=== PATIENT | male | born 1950 | race Caucasian/White ===

== ENCOUNTER 2016-05-07 15:01 | Inpatient (IN) | payer OTHER, MEDICAID ==
[~2016-05-07] VITALS: Ht 172.7 cm; Wt 88.6 kg
[2016-05-07] MEDS ORDERED: SOD CHLORIDE 0.9% 1,000 ML IV STA (19:57)
[2016-05-07 20:44] LABS: ADD UMIC YES; URINE BILIRUBIN (Dip) 2+ (NEGATIVE); URINE BLOOD (Dip) NEGATIVE (NEGATIVE); URINE COLOR AMBER (YELLOW); URINE GLUCOSE (Dip) NEGATIVE (NEGATIVE); URINE KETONES (Dip) 15 (NEGATIVE); URINE LEUKOCYTE ESTERASE (Dip) NEGATIVE (NEGATIVE); URINE TOTAL PROTEIN (Dip) 1+ (NEGATIVE); URINE UROBILINOGEN (Dip) >8.0 E.U./dL (0.1-1.0)
[2016-05-07 20:44] LABS: BASOPHILS % 0.6 % (0.0-2.0); EOSINOPHILS # 0.1 10^3/ul (0.0-0.5); EOSINOPHILS % 0.8 % (0.0-7.0); HEMATOCRIT 40.3 % (42.0-52.0); HEMOGLOBIN 13.9 g/dl (14.0-18.0); LYMPHOCYTES # 1.1 10^3/ul (0.8-2.9); LYMPHOCYTES % 14.8 % (15.0-51.0); MEAN CORPUSCULAR HEMOGLOBIN 34.8 pg (29.0-33.0); MEAN CORPUSCULAR HGB CONC 34.4 g/dl (32.0-37.0); MEAN CORPUSCULAR VOLUME 101.2 fl (82.0-101.0); MEAN PLATELET VOLUME 7.4 fl (7.4-10.4); MONOCYTE # 0.8 10^3/ul (0.3-0.9); MONOCYTES % 10.2 % (0.0-11.0); NEUTROPHIL # 5.5 10^3/ul (1.6-7.5); NEUTROPHILS % 73.6 % (39.0-77.0); PLATELET COUNT 194 10^3/UL (140-440); RED BLOOD COUNT 3.98 10^6/ul (4.70-6.10); RED CELL DISTRIBUTION WIDTH 15.2 % (11.5-14.5); UNCORRECTED WBC 7.5 10^3/ul (4.8-10.8); WHITE BLOOD COUNT 7.5 10^3/ul (4.8-10.8)
[2016-05-07] MEDS ORDERED: VERA240C2 PO (20:45)
[2016-05-07 20:49] LABS: INR 1.08; PT RATIO 1.1
[2016-05-07 20:52] LABS: ALBUMIN 3.9 g/dl (3.3-4.9); CHLORIDE 95 mmol/L (97-110)
[2016-05-07 20:53] LABS: POTASSIUM 3.6 mmol/L (3.5-5.1); SODIUM 134 mmol/L (135-144)
[2016-05-07 20:54] LABS: URINE NITRITE (Dip) NEGATIVE (NEGATIVE)
[2016-05-07 20:55] LABS: ALKALINE PHOSPHATASE 97 IU/L (42-121); ANION GAP 19 (8-16); ASPARTATE AMINO TRANSFERASE 42 IU/L (15-46); BLOOD UREA NITROGEN 12 mg/dl (7-20); CARBON DIOXIDE 24 mmol/L (21-31); CREATININE 0.54 mg/dl (0.61-1.24); TOTAL PROTEIN 8.1 g/dl (6.1-8.1)
[2016-05-07 20:56] LABS: ALANINE AMINOTRANSFERASE 26 IU/L (13-69); CALCIUM 9.3 mg/dl (8.4-10.2); GLUCOSE 107 mg/dl (70-220)
[2016-05-07 20:56] LABS: ICTOTEST NEGATIVE (NEGATIVE)
[2016-05-07 20:57] LABS: URINE RBCS NONE SEEN /HPF (0)
[2016-05-07 20:58] LABS: MUCUS,URINE FEW
[2016-05-07 21:01] LABS: ALBUMIN/GLOBULIN RATIO 0.92
[2016-05-07 21:03] LABS: CONDITION 1; LH ANALYZER COMMENTS 1
[2016-05-07 21:09] LABS: TROPONIN-I < 0.012 ng/ml (0.00-0.12)
--- NOTE | 2016-05-07 21:13 | RADRPT ---
PROCEDURE: US aorta. CLINICAL INDICATION: Screening for aortic aneurysm TECHNIQUE: Multiple sonographic images of the aorta and iliac vessels was obtained utilizing will indigo, color-flow, compressive sonography and doppler imaging. The images were reviewed on a PACS wo [facility]. COMPARISON: None. FINDINGS: The aorta is normal in caliber with no evidence of abdominal aortic aneurysm. There is normal Doppler flow in the aorta and iliac vessels. The proximal aorta measures 1.9 x 2.1 x 1.7 cm. The mid aorta measures 1.9 x 1.6 x 1.6 cm. The distal aorta measures 1.9 x 2.0 x 1.9 cm. The right iliac artery measures 1.2 x 1.4 cm. The left iliac artery measures 1.4 x 1.4 cm. RPTAT: AA IMPRESSION: No evidence of abdominal aortic aneurysm. .Homero Woods MD, Date Time Electronically viewed and signed by .Homero Woods MD, MD on 05/07/2016 21:13 .S/
[2016-05-07 21:30] VITALS: TEMP 99
--- NOTE | 2016-05-07 22:14 | RADRPT ---
PROCEDURE: XR Chest. CLINICAL INDICATION: weakness TECHNIQUE: Single frontal view of the chest was obtained. COMPARISON: None. FINDINGS: The cardiomediastinal silhouette is normal size. Pulmonary vasculature is within normal limits. Th e lungs are clear. No signs of pleural fluid or pneumothorax are seen. The osseous structures and soft tissues are unre markable. IMPRESSION: No evidence for active cardiopulmonary disease. RPTAT: HBST .Keron Barksdale MD, MD Date Time Electronically viewed and signed by .Keron Barksdale MD, MD on 05/07/2016 22:14 .T/
--- NOTE | 2016-05-07 22:14 | RADRPT ---
PROCEDURE: CT Cervical Spine without contrast. CLINICAL INDICATION: Trauma TECHNIQUE: Noncontrast CT of the cervical spine was performed with axial images. Coronal and sagitta l images were also performed. The administered radiation dose was CTDI vol = 21.1 mGy, DLP = 426 mG y-cm. COMPARISON: There are no similar studies submitted for comparison. FINDINGS: Multilevel cervical spondylotic changes are present. There is grade 1 anterolisthesis of C4 on C5 a nd C5 on C6 due to facet arthritic changes. Vertebral body stature and alignment are maintained. No acute fracture or subluxation is identified. The paravertebral and paraspinous soft tissues are un remarkable. IMPRESSION: No acute fracture or subluxation. RPTAT: HIKT .Soren Mccord MD, Date Time Electronically viewed and signed by .Soren Mccord MD, on 05/07/2016 22:14 .T/
--- NOTE | 2016-05-07 22:16 | RADRPT ---
PROCEDURE: Noncontrast CT Head. CLINICAL INDICATION: Pain. TECHNIQUE: Noncontrast CT of the head was obtained. The administered radiation dose was CTDI vol = 43 mGy, DLP = 720 mGy-cm. COMPARISON: No pertinent prior examinations were submitted for comparison. FINDINGS: The ventricles and cortical sulci are mild to moderately enlarged. There is mild to moderate decrea sed attenuation within the periventricular and subcortical white matter compatible with chronic micr ovascular changes. There is no acute intracranial hemorrhage or extra-axial fluid collection. There is no mass effect . No midline shift is identified. There is no loss of trujillo-white differentiation to suggest acute in farction. The orbits are within normal limits. The paranasal sinuses are well aerated. No destructive osseous lesion is identified. IMPRESSION: No acute findings. Mild to moderate diffuse parenchymal volume loss and chronic microvascular roberts es. RPTAT: HIKT .Soren Mccord MD, MD Date Time Electronically viewed and signed by .Soren Mccord MD, on 05/07/2016 22:15 .T/
--- NOTE | 2016-05-07 22:38 | ERA ---
ER Documentation Chief Complaint Date/Time DATE: 05/07/16 TIME: 22:27 Chief Complaint BILATERAL LOWER EXTREMITY PAIN,DIFFICULTY WALKING HPI 65-year-old man with about 4 days of bilateral lower extremity paresis. He states he has had about 2 months of lower extremity weakness and normally uses a walker to get around the house. He was seen and evaluated at [facility] about 2 months ago for similar symptoms, although at that time he was able to walk without assistance. A cursory workup in the emergency department was unremarkable, bilateral lower extremity Doppler ultrasound was also negative for DVT at that time. Patient states 4 days ago he began to have gradual onset lower extremity paresis and has been unable to get up off of the floor, which is new for him. Patient also complains of intermittent spasms of the lower extremities and paresthesias to the hands bilaterally. He is also had some of these symptoms over the last 2 months although they have been increasing. He denies recent weight loss, no abdominal pain or chest pain, no back pain, no trauma, no headache or blurry vision, no complaints of neck pain, no history of fevers or chills, no night sweats. Patient denies recent URI symptoms or viral illness. ROS All systems reviewed and are negative except as per history of present illness. Medications Home Meds Reported Medications Verapamil Hcl* (Verapamil ER*) 240 Mg Cap24h.pel, 240 MG PO DAILY, CAP 05/07/16 Allergies Allergies: Coded Allergies: No Known Allergy (Unverified , 05/07/16) PMhx/Soc Arthritis, hypertension, recent lower extremity ultrasound which ruled out DVT History of Surgery: Yes Anesthesia Reaction: No Hx Neurological Disorder: No Hx Respiratory Disorders: No Hx Cardiac Disorders: Yes (HTN) Hx Psychiatric Problems: No Hx Miscellaneous Medical Probl: Yes (ARTHRITIS) Hx Alcohol Use: Yes Hx Substance Use: No Hx Tobacco Use: Yes Smoking Status: Never smoker FmHx Family History: No diabetes Physical Exam Vitals Vital Signs Date Time Temp Pulse Resp B/P Pulse Ox O2 Delivery O2 Flow Rate FiO2 05/07/16 21:30 99.0 84 18 170/91 100 Room Air 05/07/16 16:04 100.2 97 18 143/79 98 Physical Exam GENERAL: Well-developed, well-nourished, well-hydrated, in no apparent distress , looks nontoxic in appearance HEENT: Moist mucous membranes, pink conjunctiva, no cervical spine tenderness or step-off deformities, no goiter, no jaundice or icterus, extraocular movements intact without pain. No submandibular induration, and no pharyngeal erythema NEURO: Alert and oriented 3, cranial nerves II through XII intact bilaterally, pupils equal round reactive to light, 3/5 strength to the lower extremities bilaterally mostly affecting the proximal muscle groups, patient is unable to stand independently and cannot get up off of the floor from a sitting position. DTRs to lower extremities are diminished. CARDIAC: Regular rate and rhythm, no murmurs rubs or gallops LUNGS: Clear bilaterally no wheezing crackles or stridor ABDOMEN: Soft nontender, no guarding, no rigidity, no rebound, no psoas sign no obturator sign. Normoactive bowel sounds SKIN: Warm and dry to touch, no abrasions, contusions, or hematomas, no lacerations, no ecchymosis, no target lesions, and without ulcers EXTREMITIES: No clubbing cyanosis or edema, patient has arthritic changes to the knees bilaterally, calves are bilaterally symmetrical, no Homans sign, no popliteal cord sign. Distal pulses equal and bilateral PSYCH: Normal affect without agitation or irritability Result Diagram: 05/07/16201905/07/162019 Results 24 hrs Laboratory Tests Test 05/07/16 20:10 05/07/16 20:20 Urine Bilirubin 2+ Urine Clarity CLEAR Urine Color SHAKIRA Urine Glucose NEGATIVE% Urine Hemoglobin NEGATIVE Urine Ictotest NEGATIVE Urine Ketones 15 Urine Leukocyte Esterase NEGATIVE Urine Microscopic RBC NONE SEEN/HPF Urine Microscopic WBC 0-2/HPF Urine Mucus FEW Urine Nitrite NEGATIVE Urine Specific [place] 1.025 Urine Total Protein 1+ Urine Urobilinogen >8.0 E.U./dL Urine pH 5.5 Alanine Aminotransferase (ALT/SGPT) 26IU/L Albumin 3.9g/dl Albumin/Globulin Ratio 0.92 Alkaline Phosphatase 97IU/L Anion Gap 19 Aspartate Amino Transf (AST/SGOT) 42IU/L Basophils # 0.010^3/ul Basophils % 0.6% Blood Morphology Comment Blood Urea Nitrogen 12mg/dl Calcium Level 9.3mg/dl Carbon Dioxide Level 24mmol/L Chloride Level 95mmol/L Creatinine 0.54mg/dl Direct Bilirubin 0.00mg/dl Eosinophils # 0.110^3/ul Eosinophils % 0.8% Globulin 4.20g/dl Glucose Level 107mg/dl Hematocrit 40.3% Hemoglobin 13.9g/dl INR International Normalized Ratio 1.08 Indirect Bilirubin 1.0mg/dl Lipase 145U/L Lymphocytes # 1.110^3/ul Lymphocytes % 14.8% Mean Corpuscular Hemoglobin 34.8pg Mean Corpuscular Hemoglobin Concent 34.4g/dl Mean Corpuscular Volume 101.2fl Mean Platelet Volume 7.4fl Monocytes # 0.810^3/ul Monocytes % 10.2% Neutrophils # 5.510^3/ul Neutrophils % 73.6% Nucleated Red Blood Cells # 0.010^3/ul Nucleated Red Blood Cells % 0.0/100WBC Platelet Count 63386^3/UL Potassium Level 3.6mmol/L Prothrombin Time 14.0Sec Prothrombin Time Ratio 1.1 Red Blood Count 3.9810^6/ul Red Cell Distribution Width 15.2% Sodium Level 134mmol/L Total Bilirubin 1.0mg/dl Total Protein 8.1g/dl Troponin I < 0.012ng/ml White Blood Count 7.510^3/ul Current Medications Medications (Trade) Dose Ordered Sig/Kike Route PRN Reason Start Time Stop Time Status Last Admin Dose Admin Sodium Chloride (NS) 1,000 ml @ 1,000 mls/hr Q1H STAT IV 05/07/16 19:57 05/07/16 20:56 DC 05/07/16 20:24 Procedures/MDM IV line was established patient was placed on sales technician home theater rhythm strip revealed a sinus rhythm at about 80 bpm with upright P and T waves. Patient was afebrile. I ordered Song catheter placement. I administered 1 L normal saline intravenously. EKG performed, read by me: 80 bpm, normal sinus rhythm, normal axis, no acute ST segment changes, narrow QRS complex, with good R-wave progression in precordial leads. CT scan of the brain was performed that was negative for acute bleed mass or shift. Please refer to radiologist dictation for full report CT scan of the cervical spine was performed there was no acute fracture or dislocation noted, no obvious spinal stenosis noted. One AP view of the chest performed, read by me reveals no acute infiltrates, normal mediastinum, sharp costophrenic and cardiac borders, no air under the diaphragm. Otherwise unremarkable chest x-ray. Given his symptoms and paresthesias to the extremities an abdominal aortic ultrasound was also performed no aneurysmal dilatation of the ultrasound was noted. Please refer to radiologist dictation for full report. X-ray lumbar spine 3V Interpreted by me: Bones: Body of L4 is compressed although no acute fracture noted Joints: No dislocation Foreign body: None CBC was unremarkable, electrolytes were within normal limits, liver function tests were normal, troponin was negative. Urine analysis was negative for infection. Patient will be admitted to [facility] for continued medical management and possible neurology consultation. I do not suspect spinal epidural abscess or mass, unlikely to be Guillain-[place]' syndrome or encephalitis, although further imaging will be deferred to managing hospitalist team a neurologist. Departure Diagnosis: Primary Impression: Unable to ambulate Additional Impression: Paresis of lower extremity Condition: NGHIA Colvin MD May 07, 2016 22:37
[2016-05-07 23:42] VITALS: BP 163/82; PULSE 82; RESP 18; Ht 172.7 cm; Wt 88.6 kg
--- NOTE | 2016-05-07 23:46 | RADRPT ---
PROCEDURE: XR Lumbar Spine. CLINICAL INDICATION: Pain. TECHNIQUE: Three views of the lumbar spine are available for review COMPARISON: None available FINDINGS: No fracture is identified. There is maintenance of height of the vertebral bodies. Alignment is ma intained; there is no spondylolisthesis. Pedicles are intact. There are diffuse endplate degenerat nelson changes. There is disk space narrowing and facet hypertrophy greatest at L5-S1. Bony mineraliz ation is within normal limits. Soft tissues are unremarkable. IMPRESSION: 1. No acute fracture or subluxation. 2. Diffuse degenerative changes. RPTAT: HMVK .Tavon Frank MD, MD Date Time Electronically viewed and signed by .Tavon Frank MD, MD on 05/07/2016 23:46 .K/
[2016-05-08] MEDS ORDERED: hydrALAzine 20 MG INJ IV PRN
[2016-05-08] MEDS ORDERED: MAGNESIUM HYDROXIDE 30ML CUP PO PRN
[2016-05-08] MEDS ORDERED: ONDANSETRON 4 MG INJ IV PRN
[2016-05-08] MEDS ORDERED: SENNA TAB PO ONE
[2016-05-08 02:07] VITALS: BP 153/68; PULSE 89
[2016-05-08 05:41] LABS: BASOPHILS % 0.6 % (0.0-2.0); EOSINOPHILS # 0.1 10^3/ul (0.0-0.5); EOSINOPHILS % 1.4 % (0.0-7.0); HEMATOCRIT 33.9 % (42.0-52.0); HEMOGLOBIN 11.8 g/dl (14.0-18.0); LYMPHOCYTES # 0.9 10^3/ul (0.8-2.9); LYMPHOCYTES % 13.9 % (15.0-51.0); MEAN CORPUSCULAR HGB CONC 34.7 g/dl (32.0-37.0); MEAN PLATELET VOLUME 7.3 fl (7.4-10.4); MONOCYTE # 0.7 10^3/ul (0.3-0.9); NEUTROPHIL # 5.1 10^3/ul (1.6-7.5); NEUTROPHILS % 74.1 % (39.0-77.0); PLATELET COUNT 177 10^3/UL (140-440); RED BLOOD COUNT 3.36 10^6/ul (4.70-6.10); RED CELL DISTRIBUTION WIDTH 15.1 % (11.5-14.5); UNCORRECTED WBC 6.8 10^3/ul (4.8-10.8); WHITE BLOOD COUNT 6.8 10^3/ul (4.8-10.8)
[2016-05-08 05:56] LABS: ALBUMIN 3.1 g/dl (3.3-4.9); POTASSIUM 3.2 mmol/L (3.5-5.1)
[2016-05-08 05:58] LABS: BILIRUBIN,INDIRECT 0.9 mg/dl (0-1.1); BILIRUBIN,TOTAL 0.9 mg/dl (0.2-1.3); CREATININE 0.45 mg/dl (0.61-1.24)
[2016-05-08 05:59] LABS: ALBUMIN/GLOBULIN RATIO 0.83; PHOSPHORUS 2.6 mg/dl (2.5-4.9); TOTAL PROTEIN 6.8 g/dl (6.1-8.1)
[2016-05-08 06:00] LABS: CALCIUM 8.4 mg/dl (8.4-10.2); MAGNESIUM 1.6 mg/dl (1.7-2.5)
[2016-05-08 06:26] LABS: CONDITION 1; LH ANALYZER COMMENTS 1
[2016-05-08 07:31] VITALS: BP 133/63; RESP 22
[2016-05-08] MEDS: DEXAMETHASONE 4 MG/ML 1 ML INJ IV SCH ×4 (08:51→21:35)
[2016-05-08] MEDS: SENNA TAB PO SCH (08:51)
[2016-05-08] MEDS: VERAPAMIL (SR) 240 MG TAB PO SCH (08:52)
[2016-05-08 09:34] LABS: THYROID STIMULATING HORMONE 2.64 MIU/L (0.465-4.680)
[2016-05-08 10:09] LABS: FOLATE 5.5 ng/ml (2.8-20.0)
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
--- NOTE | 2016-05-08 11:44 | RADRPT ---
PROCEDURE: CT of the right and left lower extremities CLINICAL INDICATION: Bilateral lower extremity weakness for 2 months, concern for muscle necrosis TECHNIQUE: Axial images through the right and left lower extremity IV contrast. Coronal and sagi ttal reformats. Images were interpreted at an independent PACS workstation. CTDI 18.54 mGy DLP 178.87 mGy-cm One or more of the following dose reduction techniques were used: Automated exposure control Adjustment of the mA and / or kV according to patient size Use of iterative reconstruction technique. COMPARISON: None available FINDINGS: There is no CT evidence of acute fracture. Mild degenerative changes of both hips are noted. There is mild to moderate medial and lateral femorotibial compartment osteoarthrosis of both knees. Ther e is physiologic knee joint fluid bilaterally. There are vascular calcifications. There is no soft tissue gas. There is no drainable fluid collec tion or subcutaneous soft tissue abnormality. The musculature of the right and left lower extremities demonstrates minimal diffuse atrophy. There is no focal muscle atrophy. Note is made of atrophy of the gluteus minimus muscles bilaterally at the edge of the field of view. Limited intrapelvic evaluation demonstrates a Song catheter within the bladder. There is no lympha denopathy. Chronic-appearing fracture deformity at the right ankle is noted with healed fracture of the distal fibula and surrounding bone fragmentation is of the distal tibia. There is also a chronic-appearing large osteochondral injury along the medial aspect of the talar dome (coronal 196) measuring seen b y 12 mm with 7 mm of subchondral bone plate depression. There are moderate degenerative changes at the first metatarsophalangeal joints, right greater than left. IMPRESSION: 1. Minimal diffuse bilateral lower extremity muscle atrophy could be related to disuse or chronic d enervation change. No focal muscle atrophy is identified. 2. Assessment for early denervation change, myositis, or muscle necrosis is limited on CT but there are no intramuscular fluid collections or definite muscle edema to suggest necrosis. Consider MRI for further evaluation as clinically indicated. 3. Remote post-traumatic deformity of the right ankle with chronic healed fractures and a large chr onic osteochondral injury along the medial talar dome as above. RPTAT: UU .Reg Mcmillan MD, Date Time Electronically viewed and signed by .Reg Mcmillan MD, MD on 05/08/2016 11:44 .K/
[2016-05-08] MEDS: morphine 4 MG/ML VIAL IV PRN (12:27)
--- NOTE | 2016-05-08 16:13 | PDOCDIS ---
Discharge Instructions CONDITION Patient Condition: Fair HOME CARE INSTRUCTIONS: Diet Instructions: Low Fat /Cholesterol ACTIVITY: Activity Restrictions: Slowly Increase Activity Rest between Activity Avoid heavy lifting Special Exercises FOLLOW UP/APPOINTMENTS Appointments Follow up with healthcare partners contracted neurology as outpatient Follow up with healthcare partner is contracted neurosurgery as outpatient NIKUNJ MANZANO MD May 08, 2016 16:13
--- NOTE | 2016-05-08 16:25 | PN ---
Date/Time of Note Date/Time of Note DATE: 05/08/16 TIME: 16:23 Assessment/Plan VTE Prophylaxis VTE Prophylaxis Intervention: SCD's Lines/Catheters IV [facility] Type (from [facility] Saline Lock Urinary Cath still in place: No Assessment/Plan Chief Complaint/Hosp Course IMPRESSION: 1. Bilateral lower extremity weakness and pain as well as difficulty ambulation. Evidence of muscle wasting bilateral lower extremity Neurology has been consulted Obtain MRI of the lumbar sacral and lower extremity Start the patient on folic acid for vitamin B12 2. Hypertension. Well-controlled on medical management 3. History of arthritis. 4. Mild hyponatremia. Resolved 5. Hyperkalemia Repleted We will continue monitor patient closely for recommendation management treatment as clinical course Problems: Subjective 24 Hr Interval Summary Free Text/Dictation Patient continues to complain of having lower extremity weakness No chest pain or shortness of Exam/Review of Systems Vital Signs Vitals Vital Signs Date Time Temp Pulse Resp B/P Pulse Ox O2 Delivery O2 Flow Rate FiO2 05/08/16 07:31 98.9 83 22 133/63 97 05/08/16 02:07 Room Air Intake and Output 05/07/16 05/07/16 05/08/16 15:00 23:00 07:00 Output Total 800 ml Balance -800 ml Exam General: The patient is well-developed, Not in acute distress. HEENT: Atraumatic, normocephalic. The pupils are equal and round . Neck: Supple with full range of motion. Chest: Normal expansion of the thorax during inspiration Lungs: Clear to auscultation bilaterally Heart: Normal S1-S2, Regular rhythm and rate. Abdomen: Soft , nontender, nondistended , bowel sounds are present. Extremities: Bilateral lower extremity weakness 4 out of 5, no edema no cyanosis Neurologic: Normal mental status,The patient is awake, alert and oriented . Results Result Diagram: 05/08/16 0510 05/08/16 0510 Results 24 hrs Laboratory Tests Test 05/07/16 20:10 05/07/16 20:20 05/08/16 05:10 Urine Bilirubin 2+ H Urine Clarity CLEAR Urine Color SHAKIRA Urine Glucose NEGATIVE Urine Hemoglobin NEGATIVE Urine Ictotest NEGATIVE Urine Ketones 15 Urine Leukocyte Esterase NEGATIVE Urine Microscopic RBC NONE SEEN Urine Microscopic WBC 0-2 Urine Mucus FEW Urine Nitrite NEGATIVE Urine Specific [place] 1.025 Urine Total Protein 1+ H Urine Urobilinogen >8.0 E.U./dL H Urine pH 5.5 Alanine Aminotransferase (ALT/SGPT) 26 25 Albumin 3.9 3.1 L Albumin/Globulin Ratio 0.92 0.83 Alkaline Phosphatase 97 76 Anion Gap 19 H 15 Aspartate Amino Transf (AST/SGOT) 42 41 Basophils # 0.0 0.0 Basophils % 0.6 0.6 Blood Morphology Comment Blood Urea Nitrogen 12 9 Calcium Level 9.3 8.4 Carbon Dioxide Level 24 23 Chloride Level 95 L 99 Creatinine 0.54 L 0.45 L Direct Bilirubin 0.00 0.00 Eosinophils # 0.1 0.1 Eosinophils % 0.8 1.4 Globulin 4.20 H 3.70 H Glucose Level 107 89 Hematocrit 40.3 L 33.9 L Hemoglobin 13.9 L 11.8 L INR International Normalized Ratio 1.08 Indirect Bilirubin 1.0 0.9 Lipase 145 Lymphocytes # 1.1 0.9 Lymphocytes % 14.8 L 13.9 L Mean Corpuscular Hemoglobin 34.8 H 35.0 H Mean Corpuscular Hemoglobin Concent 34.4 34.7 Mean Corpuscular Volume 101.2 H 101.0 Mean Platelet Volume 7.4 7.3 L Monocytes # 0.8 0.7 Monocytes % 10.2 10.0 Neutrophils # 5.5 5.1 Neutrophils % 73.6 74.1 Nucleated Red Blood Cells # 0.0 0.0 Nucleated Red Blood Cells % 0.0 0.0 Platelet Count 194 177 Potassium Level 3.6 3.2 L Prothrombin Time 14.0 Prothrombin Time Ratio 1.1 Red Blood Count 3.98 L 3.36 L Red Cell Distribution Width 15.2 H 15.1 H Sodium Level 134 L 134 L Total Bilirubin 1.0 0.9 Total Protein 8.1 6.8 # Troponin I < 0.012 White Blood Count 7.5 6.8 Folate 5.5 Magnesium Level 1.6 L Phosphorus Level 2.6 Thyroid Stimulating Hormone (TSH) 2.640 Vitamin B12 Level 296 Medications Medications Current Medications Verapamil HCl (Isoptin Sr) 240 mg DAILY PO Last administered on 05/08/16 08:52 ; Admin Dose 240 MG; Start 05/08/16 at 09:00 Senna (Senokot) 2 tab DAILY PO Last administered on 05/08/16 08:51; Admin Dose 2 TAB; Start 05/08/16 at 09:00 Ondansetron HCl (Zofran Inj) 4 mg Q6H PRN IV NAUSEA AND/OR VOMITING; Start 05/08 at 00:00 Hydralazine HCl (Apresoline) 10 mg Q4H PRN IV ELEVATED SYSTOLIC BP Last administered on 05/08/16 01:18; Admin Dose 10 MG; Start 05/08/16 at 00:00 Acetaminophen (Tylenol Tab) 650 mg Q6H PRN PO PAIN AND OR ELEVATED TEMP; Start 05/08/16 at 00:00 Morphine Sulfate (morphine) 4 mg Q4H PRN IV SEVERE PAIN LEVEL 7-10 Last administered on 05/08/16 12:27; Admin Dose 4 MG; Start 05/08/16 at 00:00 Gabapentin (Neurontin) 300 mg TID PRN PO PAIN; Start 05/08/16 at 00:00 Magnesium Hydroxide (Milk Of Mag) 30 ml DAILY PRN PO CONSTIPATION; Start at 00:00 Dexamethasone (Decadron) 4 mg Q8 IV Last administered on 05/08/16 16:13; Admin Dose 4 MG; Start 05/08/16 at 09:00; Stop 05/10/16 at 10:00 Cyanocobalamin (Vitamin B12 Inj) 1,000 mcg ONCE ONCE IM ; Start 05/08/16 at 16: 30; Stop 05/08/16 at 16:31; Status UNV Cyanocobalamin (Vitamin B12) 1,000 mcg DAILY PO ; Start 05/09/16 at 09:00; Status UNV Folic Acid (Folic Acid) 0.8 mg DAILY PO ; Start 05/09/16 at 09:00; Status UNV NIKUNJ MANZANO MD May 08, 2016 16:25
[2016-05-08] MEDS ORDERED: CYANOCOBALAMIN 1000 MCG INJ IM ONE (17:00)
[2016-05-08] MEDS ORDERED: POTASSIUM CHLORIDE 30 MEQ in SOD CHLORIDE 0.9% 150 ML IVPB ONE (18:00)
[2016-05-08 19:31] VITALS: BP 178/79; RESP 20
[2016-05-08] MEDS: GABAPENTIN 300 MG CAP PO PRN (20:29)
[2016-05-08 21:35] VITALS: BP 143/73; PULSE 79
[2016-05-08] MEDS ORDERED: IMMUNE GLOBULIN (HUMAN) 6 GM INJ IV SCH (22:30)
[2016-05-08] MEDS ORDERED: IMMUNE GLOBULIN IV SCH (23:30)
[2016-05-08] MEDS ORDERED: WATER STERILE FOR IV SCH (23:30)
[2016-05-09] MEDS: DIPHENHYDRAMINE 50 MG CAP PO SCH (00:29)
[2016-05-09] MEDS: ACETAMINOPHEN 500 MG TAB PO SCH (00:30)
--- NOTE | 2016-05-09 00:32 | CONS ---
DATE OF ADMISSION: 05/07/2016 DATE OF CONSULTATION: 05/08/2016 TYPE OF CONSULTATION: Neurologic. Thank you, Dr. Weir, for your kind referral for evaluation of weakness in lower extremities. HISTORY OF PRESENT ILLNESS: The patient is a 65-year-old gentleman with history of hypertension, who has been suffering from progressive weakness in the lower extremities for approximately 1 month. He states that a great deal of worsening happened in the last couple of weeks. He is not able to ambulate on his own. He states that about a month ago, he went to [facility] for evaluation of numbness and weakness in lower extremities, he had ultrasound of the venous system of the lower extremities reportedly normal and sent home from emergency room. He states that over time. He also developed weakness and numbness in the hands. He denies any dysphasia or dysarthria, but states that he very easily gets short of breath with activity. He denies any spinal pain, headache or bowel or bladder problems. PAST MEDICAL HISTORY: Hypertension. MEDICATIONS: Verapamil. ALLERGIES: NONE. SOCIAL HISTORY: Occasional alcohol. No tobacco or drug use. FAMILY HISTORY: Not contributory. Here patient was put on folate, B12, verapamil. He was put on Decadron 4 mg q. 8 hours as well as Neurontin 300 t.i.d. for pain as he feels that his lower extremities are very sensitive to touch in the feet. LABORATORY DATA: Anemia 11.8, hemoglobin 3.9, hematocrit normal. WBCs: Platelets. Sodium 134, potassium 3.2, magnesium 1.6, albumin 3.1. B12 296. Normal TSH. Urinalysis: 2+ bilirubin, otherwise negative. Normal PT, PTT. PHYSICAL EXAMINATION: VITAL SIGNS: Temperature 98.0, 79 pulse, 20 respirations , 143/73 blood pressure. GENERAL: Not in acute distress, lying in bed. HEENT: Normocephalic, atraumatic head. NECK: No carotid bruits. No thyromegaly. LUNGS: Clear to auscultation bilaterally. CARDIAC: Normal cardiac rhythm and sounds. ABDOMEN: Soft. EXTREMITIES: No cyanosis, clubbing or edema. NEUROLOGIC: He is awake, alert, and oriented x3 with fluent speech. Cranial nerve examination shows intact visual beltran bilaterally. Pupils round, reactive to light from 4 to 2 mm bilaterally. Extraocular movements intact without nystagmus. Symmetrical face. Preserved facial strength and sensation. Tongue is in midline. Palate elevates symmetrically. Motor strength examination shows mild weakness in the bilateral hands about 4/5. In lower extremities he is weaker about 3/5 especially with dorsi and plantar flexion of the feet and extension of the knee and abduction of the thighs. Normal bulk and tone. I did not see any fasciculations. Sensory examination shows diminution of vibration in bilateral fingertips and is actually almost absent vibratory sense even on the knees, not felt on the toes. Sensory examination also diminished in glove stocking distribution. Deep tendon reflexes 1+ upper extremities and absent in lower extremities. No definite response to plantar stimulation. Coordination preserved on [id number] testing. No dysmetria or tremor. Gait was not assessed, of course. 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 Usually Guillain-Huntington symptoms come to a plateau without further progression in the month and it is not definitely clear when the patient's symptoms started. For workup of inflammatory polyneuropathy will obtain lumbar puncture. Usually it shows elevated protein level. I would give patient IVIG treatment and usually steroids are not helpful for Guillain-Huntington syndrome so will hold steroids. Will obtain his vital capacity or negative inspiratory pressure by PT to evaluate his shortness of breath. He states that at rest he is not short of breath but without activity. He had a chest x-ray already and it was normal. CAT scan of the head was normal. Lumbar spine extremities, cervical spinal CT shows degenerative changes , but no acute or traumatic abnormality. Thank you very much for this interesting consultation. I will get physical therapy on board. Dictated By: MILTON DOWELL/YVON Conf#: [id number] DID#: [id number]
[2016-05-09] MEDS: IMMUNE GLOBULIN IV SCH (00:53)
[2016-05-09] MEDS: WATER STERILE FOR IV SCH (00:53)
[2016-05-09] MEDS: DEXAMETHASONE 4 MG/ML 1 ML INJ IV SCH (05:31)
[2016-05-09 06:18] LABS: ADD SCAN DIFF NO
[2016-05-09 06:49] LABS: CREATININE 0.44 mg/dl (0.61-1.24)
[2016-05-09 08:00] VITALS: BP 152/75; RESP 18
[2016-05-09] MEDS: morphine 4 MG/ML VIAL IV PRN ×2 (08:20→14:34)
[2016-05-09] MEDS: SENNA TAB PO SCH (08:20)
[2016-05-09] MEDS: VERAPAMIL (SR) 240 MG TAB PO SCH (08:20)
[2016-05-09] MEDS: FOLIC ACID 0.4 MG TAB PO SCH (08:20)
[2016-05-09] MEDS: CYANOCOBALAMIN 500 MCG TAB PO SCH (08:20)
[2016-05-09 10:23] LABS: ABNORMAL IP MESSAGE 1; BASOPHILS % 0.2 % (0.0-2.0); HEMATOCRIT 35.6 % (42.0-52.0); HEMOGLOBIN 12.3 g/dl (14.0-18.0); LYMPHOCYTES # 0.4 10^3/ul (0.8-2.9); LYMPHOCYTES % 8.8 % (15.0-51.0); MEAN CORPUSCULAR HEMOGLOBIN 34.6 pg (29.0-33.0); MEAN CORPUSCULAR HGB CONC 34.6 g/dl (32.0-37.0); MEAN CORPUSCULAR VOLUME 100.3 fl (82.0-101.0); MEAN PLATELET VOLUME 10.1 fl (7.4-10.4); MONOCYTE # 0.2 10^3/ul (0.3-0.9); MONOCYTES % 3.4 % (0.0-11.0); NEUTROPHIL # 4.1 10^3/ul (1.6-7.5); NEUTROPHILS % 87.4 % (39.0-77.0); PLATELET COUNT 195 10^3/UL (140-415); RED BLOOD COUNT 3.55 10^6/ul (4.70-6.10); RED CELL DISTRIBUTION WIDTH 13.3 % (11.5-14.5); WHITE BLOOD COUNT 4.7 10^3/ul (4.8-10.8)
--- NOTE | 2016-05-09 10:26 | CONS ---
Date/Time of Note Date/Time of Note DATE: 05/09/16 TIME: 10:24 Consult Date/Type/Reason Admit Date/Time May 07, 2016 at 22:19 Initial Consult Date Type of Consultation: neurology Subjective I came to see the pt, he is in radiology Objective Vital Signs Date Time Temp Pulse Resp B/P Pulse Ox O2 Delivery O2 Flow Rate FiO2 05/09/16 08:00 98.6 91 18 152/75 95 05/08/16 21:35 Room Air Intake and Output 05/08/16 05/08/16 05/09/16 15:00 23:00 07:00 Intake Total 460 ml 568 ml Output Total 700 ml 1600 ml Balance -240 ml -1032 ml Results/Medications Result Diagram: 05/08/16 0510 05/09/16 0502 Results 24 hrs Laboratory Tests Test 05/09/16 05:02 Anion Gap 18 H Blood Urea Nitrogen 11 Calcium Level 9.0 Carbon Dioxide Level 21 Chloride Level 101 Creatinine 0.44 L Glucose Level 125 Potassium Level 4.0 Sodium Level 136 Medications Current Medications Verapamil HCl (Isoptin Sr) 240 mg DAILY PO Last administered on 05/09/16 08:20 ; Admin Dose 240 MG; Start 05/08/16 at 09:00 Senna (Senokot) 2 tab DAILY PO Last administered on 05/09/16 08:20; Admin Dose 2 TAB; Start 05/08/16 at 09:00 Ondansetron HCl (Zofran Inj) 4 mg Q6H PRN IV NAUSEA AND/OR VOMITING; Start 05/08 at 00:00 Hydralazine HCl (Apresoline) 10 mg Q4H PRN IV ELEVATED SYSTOLIC BP Last administered on 05/08/16 01:18; Admin Dose 10 MG; Start 05/08/16 at 00:00 Acetaminophen (Tylenol Tab) 650 mg Q6H PRN PO PAIN AND OR ELEVATED TEMP; Start 05/08/16 at 00:00 Morphine Sulfate (morphine) 4 mg Q4H PRN IV SEVERE PAIN LEVEL 7-10 Last administered on 05/09/16 08:20; Admin Dose 4 MG; Start 05/08/16 at 00:00 Gabapentin (Neurontin) 300 mg TID PRN PO PAIN Last administered on 05/08/16 20: 29; Admin Dose 300 MG; Start 05/08/16 at 00:00 Magnesium Hydroxide (Milk Of Mag) 30 ml DAILY PRN PO CONSTIPATION; Start at 00:00 Dexamethasone (Decadron) 4 mg Q8 IV Last administered on 05/09/16 05:31; Admin Dose 4 MG; Start 05/08/16 at 09:00; Stop 05/10/16 at 10:00 Cyanocobalamin (Vitamin B12) 1,000 mcg DAILY PO Last administered on 05/09/16 08:20; Admin Dose 1,000 MCG; Start 05/09/16 at 09:00 Folic Acid (Folic Acid) 0.8 mg DAILY PO Last administered on 05/09/16 08:20; Admin Dose 0.8 MG; Start 05/09/16 at 09:00 Acetaminophen (Tylenol Tab) 1,000 mg Q24H PO Last administered on 05/09/16 00: 30; Admin Dose 1,000 MG; Start 05/08/16 at 23:00; Stop 05/11/16 at 23:01 Diphenhydramine HCl 50 mg 50 mg Q24H PO Last administered on 05/09/16 00:29; Admin Dose 50 MG; Start 05/08/16 at 23:00; Stop 05/11/16 at 23:01 Immune Globulin/ Sterile Water (Carimune Nf/ Water Sterile For Inj) 733 ml @ 42 mls/hr Q24H IV Last administered on 05/09/16 00:53; Admin Dose 42 MLS/HR; Start 05/08/16 at 23:00; Stop 05/12/16 at 16:28 Assessment/Plan Chief Complaint/Hosp Course 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 Continue IVIG. PT Problems: MILTON MCPHERSON MD May 09, 2016 10:25
[2016-05-09 11:21] LABS: CSF COLOR COLORLESS; CSF#TUBES REC'D 4
[2016-05-09 11:22] LABS: # OF CELLS COUNTED 2; CSF#TUBE COUNT TUBE#4
[2016-05-09 12:09] LABS: GLUCOSE,CSF 80 mg/dl (50-80)
--- NOTE | 2016-05-09 12:11 | PN ---
Date/Time of Note Date/Time of Note DATE: 05/09/16 TIME: 12:06 Assessment/Plan VTE Prophylaxis VTE Prophylaxis Intervention: SCD's Lines/Catheters [facility] Saline Lock Urinary Cath still in place: No Assessment/Plan Chief Complaint/Hosp Course IMPRESSION: 1. 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 Evidence of muscle wasting bilateral lower extremity and CT of the lower extremities Neurology has been consulted, continue IVIG 4 days (starting on 05/08/2016) Follow-up MRI of the lumbar sacral and lower extremity Continue folic acid for vitamin B12 2. Hypertension. Well-controlled on medical management 3. History of arthritis. 4. Mild hyponatremia. Resolved 5. Hyperkalemia Resolved We will continue monitor patient closely for recommendation management treatment as clinical course Problems: Subjective 24 Hr Interval Summary Free Text/Dictation Patient continues to complain of having bilateral lower extremity weakness Denies of any chest pain or shortness of breath No nausea vomiting diarrhea, is able to tolerate oral intake Exam/Review of Systems Vital Signs Vitals Vital Signs Date Time Temp Pulse Resp B/P Pulse Ox O2 Delivery O2 Flow Rate FiO2 05/09/16 08:00 98.6 91 18 152/75 95 05/08/16 21:35 Room Air Intake and Output 05/08/16 05/08/16 05/09/16 15:00 23:00 07:00 Intake Total 460 ml 568 ml Output Total 700 ml 1600 ml Balance -240 ml -1032 ml Exam General: The patient is well-developed, Not in acute distress. HEENT: Atraumatic, normocephalic. The pupils are equal and round . Neck: Supple with full range of motion. Chest: Normal expansion of the thorax during inspiration Lungs: Clear to auscultation bilaterally Heart: Normal S1-S2, Regular rhythm and rate. Abdomen: Soft , nontender, nondistended , bowel sounds are present. Extremities: Bilateral lower extremity weakness 4/5, decreased range of motion secondary to weakness, no edema no cyanosis Neurologic: Normal mental status,The patient is awake, alert and oriented . Results Result Diagram: 05/09/16 0502 05/09/16 0502 Results 24 hrs Laboratory Tests Test 05/09/16 05:02 05/09/16 11:00 Anion Gap 18 H Basophils # 0.0 Basophils % 0.2 Blood Urea Nitrogen 11 Calcium Level 9.0 Carbon Dioxide Level 21 Chloride Level 101 Creatinine 0.44 L Eosinophils # 0.0 Eosinophils % 0.0 Glucose Level 125 Hematocrit 35.6 L Hemoglobin 12.3 L Lymphocytes # 0.4 L Lymphocytes % 8.8 L Mean Corpuscular Hemoglobin 34.6 H Mean Corpuscular Hemoglobin Concent 34.6 Mean Corpuscular Volume 100.3 Mean Platelet Volume 10.1 # Monocytes # 0.2 L Monocytes % 3.4 Neutrophils # 4.1 Neutrophils % 87.4 H Nucleated Red Blood Cells # 0.0 Nucleated Red Blood Cells % 0.0 Platelet Count 195 Potassium Level 4.0 Red Blood Count 3.55 L Red Cell Distribution Width 13.3 Sodium Level 136 White Blood Count 4.7 #L CSF Appearance CLEAR CSF Basophils % CSF Cell Count Tube # TUBE#4 CSF Color COLORLESS CSF Crenated Cells CSF Eosinophils % CSF Lymphocytes % 50 CSF Monocytes % 50 CSF Neutrophils % 0 CSF Other Cells % CSF RBC 0 CSF Total Cells Counted 2 CSF Tubes Submitted 4 CSF Volume 8.0 CSF WBC 2 Medications Medications Current Medications Verapamil HCl (Isoptin Sr) 240 mg DAILY PO Last administered on 05/09/16 08:20 ; Admin Dose 240 MG; Start 05/08/16 at 09:00 Senna (Senokot) 2 tab DAILY PO Last administered on 05/09/16 08:20; Admin Dose 2 TAB; Start 05/08/16 at 09:00 Ondansetron HCl (Zofran Inj) 4 mg Q6H PRN IV NAUSEA AND/OR VOMITING; Start 05/08 at 00:00 Hydralazine HCl (Apresoline) 10 mg Q4H PRN IV ELEVATED SYSTOLIC BP Last administered on 05/08/16 01:18; Admin Dose 10 MG; Start 05/08/16 at 00:00 Acetaminophen (Tylenol Tab) 650 mg Q6H PRN PO PAIN AND OR ELEVATED TEMP; Start 05/08/16 at 00:00 Morphine Sulfate (morphine) 4 mg Q4H PRN IV SEVERE PAIN LEVEL 7-10 Last administered on 05/09/16 08:20; Admin Dose 4 MG; Start 05/08/16 at 00:00 Gabapentin (Neurontin) 300 mg TID PRN PO PAIN Last administered on 05/08/16 20: 29; Admin Dose 300 MG; Start 05/08/16 at 00:00 Magnesium Hydroxide (Milk Of Mag) 30 ml DAILY PRN PO CONSTIPATION; Start at 00:00 Cyanocobalamin (Vitamin B12) 1,000 mcg DAILY PO Last administered on 05/09/16 08:20; Admin Dose 1,000 MCG; Start 05/09/16 at 09:00 Folic Acid (Folic Acid) 0.8 mg DAILY PO Last administered on 05/09/16 08:20; Admin Dose 0.8 MG; Start 05/09/16 at 09:00 Acetaminophen (Tylenol Tab) 1,000 mg Q24H PO Last administered on 05/09/16 00: 30; Admin Dose 1,000 MG; Start 05/08/16 at 23:00; Stop 05/11/16 at 23:01 Diphenhydramine HCl 50 mg 50 mg Q24H PO Last administered on 05/09/16 00:29; Admin Dose 50 MG; Start 05/08/16 at 23:00; Stop 05/11/16 at 23:01 Immune Globulin/ Sterile Water (Carimune Nf/ Water Sterile For Inj) 733 ml @ 42 mls/hr Q24H IV Last administered on 05/09/16 00:53; Admin Dose 42 MLS/HR; Start 05/08/16 at 23:00; Stop 05/12/16 at 16:28 NIKUNJ MANZANO MD May 09, 2016 12:11
--- NOTE | 2016-05-09 13:05 | RADRPT ---
PROCEDURE: MRI lumbar spine without and with contrast CLINICAL INDICATION: Inability to ambulate, low back pain, muscle wasting TECHNIQUE: Multiplanar MRI of the lumbar spine without and with was performed on a 3.0 T scanner ut ilizing the following sequences: T1-weighted, T2-weighted, postcontrast T1-weighted. 10 ml Magnevis t intravenous contrast administered. COMPARISON: Lumbar spine radiographs 05/07/2016 FINDINGS: There is mild upper lumbar levoconvex scoliosis with preservation of the lordosis of the lumbar spin e. There is trace retrolisthesis of L2 and L3. The vertebral bodies are maintained in height. Mar row signal intensity is heterogeneous without fracture or destructive lesion seen. There is anterior spondylosis, decreased disk intranuclear T2-weighted signal intensity at L1-2 through L5-S1 , with type 1 modic changes seen at L1-2 and type 2 changes seen at L2-3, L4-5 and L5-S1. The tip of the c onus medullaris is visible at the L2 level and appears unremarkable. No abnormal medullary or lepto meningeal enhancement is identified. Fatty infiltration of the paraspinal muscles is noted. T12-L1: The disc is maintained in height. No disc bulge or herniation is identified. There is no c entral canal stenosis or foraminal narrowing. L1-L2: There is mild disk space narrowing. There is mild posterior disk bulging, and facet arthrop athy. There is no central canal stenosis. There is mild bilateral foraminal narrowing L2-L3: There is mild moderate disk space narrowing. There is posterior disk bulging and facet arth ropathy with moderate central canal stenosis. There is mild to moderate bilateral foraminal narrow ing. L3-L4: The disc is maintained in height. There is posterior disk bulging. There is relatively adv anced facet arthropathy with ligamentum flavum hypertrophy. There is moderate - severe central milan l stenosis. There is mild to moderate bilateral foraminal narrowing. L4-L5: There is mild disk space narrowing posteriorly. There is posterior disk bulging and facet a rthropathy with ligamentum flavum hypertrophy. There is moderate central canal stenosis. There is mild right, mild-moderate left foraminal narrowing. L5-S1: There is moderate to severe disk space narrowing posteriorly. There is posterior disk bulgi ng and advanced facet arthropathy with ligamentum flavum hypertrophy. There is mild central canal s tenosis. There is moderate bilateral foraminal narrowing. IMPRESSION: 1. Moderate to severe central stenosis at L3-4. 2. Moderate central stenosis at the L2-3 and L4-5, and mild central stenosis at L5-S1. 3. Multilevel foraminal narrowing outlined in detail above. 4. Lumbar spondylosis, with mild levoconvex scoliosis. RPTAT: VV .Dimas Bautista MD, Date Time Electronically viewed and signed by .Dimas Bautista MD, on 05/09/2016 13:05 .O/
--- NOTE | 2016-05-09 13:52 | RADRPT ---
PROCEDURE: Fluoroscopic guided lumbar puncture CLINICAL INDICATION: Bilateral lower extremity weakness. TECHNIQUE: Prior to the procedure, informed consent was obtained. Risks including bleeding and in fection were explained to the patient. The patient understood and was willing to proceed. A proced ural pause was performed. The patient's name, date of , and procedure to be performed were royer ified. Using local anesthetic, sterile technique, and fluoroscopic guidance, a 22-gauge spinal needle was a dvanced into the thecal sac at the L4-5 level. 10 mL of clear cerebrospinal fluid was aspirated and sent for laboratory analysis. The needle was removed. A dressing was applied. The patient tolerat ed the procedure well. A total of 0.3 minutes of fluoroscopy time was used. COMPARISON: Lumbar spine MRI of the same day. FINDINGS: Images demonstrate the needle at the L4-5 level in the thecal sac. IMPRESSION: 1. Successful fluoroscopic guided lumbar puncture. RPTAT: QQ .Nichole Slaughter MD, Date Time Electronically viewed and signed by .Nichole Slaughter MD, MD on 05/09/2016 13:52 .N/
[2016-05-09 20:00] VITALS: BP 133/87; RESP 20
[2016-05-10] MEDS: DIPHENHYDRAMINE 50 MG CAP PO SCH ×2 (00:21→22:35)
[2016-05-10] MEDS: ACETAMINOPHEN 500 MG TAB PO SCH ×2 (00:21→22:35)
[2016-05-10] MEDS: WATER STERILE FOR IV SCH ×2 (00:22→23:07)
[2016-05-10] MEDS: IMMUNE GLOBULIN IV SCH ×2 (00:22→23:07)
[2016-05-10] MEDS: morphine 4 MG/ML VIAL IV PRN ×3 (02:36→20:07)
[2016-05-10 06:04] LABS: ABNORMAL IP MESSAGE 1; ADD SCAN DIFF NO; HEMATOCRIT 32.9 % (42.0-52.0); HEMOGLOBIN 11.6 g/dl (14.0-18.0); LYMPHOCYTES # 0.5 10^3/ul (0.8-2.9); LYMPHOCYTES % 5.6 % (15.0-51.0); MEAN CORPUSCULAR HEMOGLOBIN 34.7 pg (29.0-33.0); MEAN CORPUSCULAR HGB CONC 35.3 g/dl (32.0-37.0); MEAN CORPUSCULAR VOLUME 98.5 fl (82.0-101.0); MEAN PLATELET VOLUME 9.7 fl (7.4-10.4); MONOCYTE # 0.7 10^3/ul (0.3-0.9); NEUTROPHIL # 6.7 10^3/ul (1.6-7.5); NEUTROPHILS % 84.2 % (39.0-77.0); NUCLEATED RED BLOOD CELLS% 0.2 /100WBC (0.0-0.0); PLATELET COUNT 197 10^3/UL (140-415); RED BLOOD COUNT 3.34 10^6/ul (4.70-6.10); RED CELL DISTRIBUTION WIDTH 13.2 % (11.5-14.5)
[2016-05-10 06:39] LABS: POTASSIUM 3.4 mmol/L (3.5-5.1)
[2016-05-10 06:41] LABS: CREATININE 0.49 mg/dl (0.61-1.24)
[2016-05-10 06:42] LABS: CALCIUM 8.5 mg/dl (8.4-10.2)
[2016-05-10 08:06] VITALS: BP 163/82; RESP 20
[2016-05-10] MEDS: SENNA TAB PO SCH (08:33)
[2016-05-10] MEDS: VERAPAMIL (SR) 240 MG TAB PO SCH (08:33)
[2016-05-10] MEDS: FOLIC ACID 0.4 MG TAB PO SCH (08:33)
[2016-05-10] MEDS: CYANOCOBALAMIN 500 MCG TAB PO SCH (08:33)
[2016-05-10 08:36] VITALS: BP 127/65; PULSE 90
--- NOTE | 2016-05-10 11:11 | PN ---
Date/Time of Note Date/Time of Note DATE: 05/10/16 TIME: 11:09 Assessment/Plan VTE Prophylaxis VTE Prophylaxis Intervention: LMWH Lines/Catheters IV [facility] Saline Lock Urinary Cath still in place: No Assessment/Plan Chief Complaint/Hosp Course IMPRESSION: 1. 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 Evidence of muscle wasting bilateral lower extremity and CT of the lower extremities Neurology has been consulted, continue IVIG 4 days (starting on 05/08/2016) Follow-up MRI of the lumbar sacral and lower extremity Continue folic acid for vitamin B12 2. Hypertension. Well-controlled on medical management 3. History of arthritis. 4. Mild hyponatremia. Resolved 5. Hyperkalemia Resolved We will continue monitor patient closely for recommendation management treatment as clinical course Problems: Subjective 24 Hr Interval Summary Free Text/Dictation Patient stated that lower extremity weakness has been improving Denies of any chest pain or shortness of breath Tolerating oral intake Is requesting to be discharged home status post discharge and is refusing assisted facility placement Exam/Review of Systems Vital Signs Vitals Vital Signs Date Time Temp Pulse Resp B/P Pulse Ox O2 Delivery O2 Flow Rate FiO2 05/10/16 08:36 90 127/65 05/10/16 08:06 97.7 20 99 05/08/16 21:35 Room Air Intake and Output 05/09/16 05/09/16 05/10/16 15:00 23:00 07:00 Intake Total 1765 ml 788 ml Output Total 900 ml 800 ml Balance 865 ml -12 ml Exam General: The patient is well-developed, Not in acute distress. HEENT: Atraumatic, normocephalic. The pupils are equal and round . Neck: Supple with full range of motion. Chest: Normal expansion of the thorax during inspiration Lungs: Clear to auscultation bilaterally Heart: Normal S1-S2, Regular rhythm and rate. Abdomen: Soft , nontender, nondistended , bowel sounds are present. Extremities: Normal to inspection, no edema no cyanosis, bilateral lower extremity weakness4/5 , sensory is intact Neurologic: Normal mental status,The patient is awake, alert and oriented . Results Result Diagram: 05/10/16 0515 05/10/16 0515 Results 24 hrs Laboratory Tests Test 05/10/16 05:15 Anion Gap 13 Basophils # 0.0 Basophils % 0.0 Blood Urea Nitrogen 13 Calcium Level 8.5 Carbon Dioxide Level 22 Chloride Level 100 Creatinine 0.49 L Eosinophils # 0.0 Eosinophils % 0.0 Glucose Level 106 Hematocrit 32.9 L Hemoglobin 11.6 L Lymphocytes # 0.5 L Lymphocytes % 5.6 L Mean Corpuscular Hemoglobin 34.7 H Mean Corpuscular Hemoglobin Concent 35.3 Mean Corpuscular Volume 98.5 Mean Platelet Volume 9.7 Monocytes # 0.7 Monocytes % 9.0 Neutrophils # 6.7 Neutrophils % 84.2 H Nucleated Red Blood Cells # 0.0 Nucleated Red Blood Cells % 0.2 H Platelet Count 197 Potassium Level 3.4 L Red Blood Count 3.34 L Red Cell Distribution Width 13.2 Sodium Level 132 L White Blood Count 8.0 # Medications Medications Current Medications Verapamil HCl (Isoptin Sr) 240 mg DAILY PO Last administered on 05/10/16 08:33 ; Admin Dose 240 MG; Start 05/08/16 at 09:00 Senna (Senokot) 2 tab DAILY PO Last administered on 05/09/16 08:20; Admin Dose 2 TAB; Start 05/08/16 at 09:00 Ondansetron HCl (Zofran Inj) 4 mg Q6H PRN IV NAUSEA AND/OR VOMITING; Start 05/08 at 00:00 Hydralazine HCl (Apresoline) 10 mg Q4H PRN IV ELEVATED SYSTOLIC BP Last administered on 05/08/16 01:18; Admin Dose 10 MG; Start 05/08/16 at 00:00 Acetaminophen (Tylenol Tab) 650 mg Q6H PRN PO PAIN AND OR ELEVATED TEMP; Start 05/08/16 at 00:00 Morphine Sulfate (morphine) 4 mg Q4H PRN IV SEVERE PAIN LEVEL 7-10 Last administered on 05/10/16 02:36; Admin Dose 4 MG; Start 05/08/16 at 00:00 Gabapentin (Neurontin) 300 mg TID PRN PO PAIN Last administered on 05/08/16 20: 29; Admin Dose 300 MG; Start 05/08/16 at 00:00 Magnesium Hydroxide (Milk Of Mag) 30 ml DAILY PRN PO CONSTIPATION; Start at 00:00 Cyanocobalamin (Vitamin B12) 1,000 mcg DAILY PO Last administered on 05/10/16 08:33; Admin Dose 1,000 MCG; Start 05/09/16 at 09:00 Folic Acid (Folic Acid) 0.8 mg DAILY PO Last administered on 05/10/16 08:33; Admin Dose 0.8 MG; Start 05/09/16 at 09:00 Acetaminophen (Tylenol Tab) 1,000 mg Q24H PO Last administered on 05/10/16 00: 21; Admin Dose 1,000 MG; Start 05/08/16 at 23:00; Stop 05/11/16 at 23:01 Diphenhydramine HCl 50 mg 50 mg Q24H PO Last administered on 05/10/16 00:21; Admin Dose 50 MG; Start 05/08/16 at 23:00; Stop 05/11/16 at 23:01 Immune Globulin/ Sterile Water (Carimune Nf/ Water Sterile For Inj) 733 ml @ 42 mls/hr Q24H IV Last administered on 05/10/16 00:22; Admin Dose 42 MLS/HR; Start 05/08/16 at 23:00; Stop 05/12/16 at 16:28 NIKUNJ MANZANO MD May 10, 2016 11:11
--- NOTE | 2016-05-10 11:50 | RADRPT ---
PROCEDURE: MRI OF THE LEFT LEG CLINICAL INDICATION: Left leg pain. History muscle wasting. A inability to ambulate. TECHNIQUE: Multiple MRI images were obtained utilizing multiple pulse sequences and all three planes . After the administration of 10 cc of Magnevist, axial and sagittal post contrast T1-weighted image s were obtained. Images were interpreted on a high-resolution PACS system. COMPARISON: None available. FINDINGS: Hyperintense signal on the fluid-sensitive sequences seen in the lateral tibial plateau with associa bimal enhancement. The remainder of the marrow signal intensity is otherwise unremarkable. No other fractures are suspected. No dislocations are seen. Diffuse fatty atrophy of the muscle compartment s of the left lower extremity is seen. The visualized tendinous and ligamentous structures are shanel sly intact. No focal fluid collection or abscess is seen. No hematoma is identified. No other are as of abnormal enhancement is seen. IMPRESSION: 1. Marrow edema in the lateral tibial plateau with associated enhancement which may represent a non displaced fracture. Correlation to site of pain is suggested as well as an interval follow-up. 2. Diffuse fatty atrophy of the muscle compartments of the left lower extremity. RPTAT: HPNM Physician Elly Date Time Electronically viewed and signed by Physician Elly on 05/10/2016 11:49 /
--- NOTE | 2016-05-10 14:49 | RADRPT ---
PROCEDURE: MRI OF THE LEFT THIGH CLINICAL INDICATION: Left leg pain TECHNIQUE: Multiple MRI images were obtained utilizing multiple pulse sequences and all three plane s. After the administration of 10 cc of Magnevist, axial and sagittal post contrast T1-weighted imag es were obtained. Images were interpreted on a high-resolution PACS system. COMPARISON: None available. FINDINGS: The marrow signal intensity is unremarkable. No acute fracture or dislocation is seen. No mass or fluid collection is identified. No evidence of a hematoma is seen. Fatty atrophy of the muscle com partments of the left thigh is seen. No abnormal enhancement is seen. IMPRESSION: Fatty atrophy of the muscle compartments of the left thigh. RPTAT: HPNM Physician Elly Date Time Electronically viewed and signed by Physician Elly on 05/10/2016 14:48 /
--- NOTE | 2016-05-10 17:32 | CONS ---
Date/Time of Note Date/Time of Note DATE: 05/10/16 TIME: 17:29 Consult Date/Type/Reason Admit Date/Time May 07, 2016 at 22:19 Type of Consultation: neurology Subjective no new complaints, same weakness, numbness Objective Vital Signs Date Time Temp Pulse Resp B/P Pulse Ox O2 Delivery O2 Flow Rate FiO2 05/10/16 08:36 90 127/65 05/10/16 08:06 97.7 20 99 05/08/16 21:35 Room Air Intake and Output 05/09/16 05/09/16 05/10/16 15:00 23:00 07:00 Intake Total 1765 ml 788 ml Output Total 900 ml 800 ml Balance 865 ml -12 ml Results/Medications Result Diagram: 05/10/1615 05/10/1615 Results 24 hrs Laboratory Tests Test 05/10/16 05:15 Anion Gap 13 Basophils # 0.0 Basophils % 0.0 Blood Urea Nitrogen 13 Calcium Level 8.5 Carbon Dioxide Level 22 Chloride Level 100 Creatinine 0.49 L Eosinophils # 0.0 Eosinophils % 0.0 Glucose Level 106 Hematocrit 32.9 L Hemoglobin 11.6 L Lymphocytes # 0.5 L Lymphocytes % 5.6 L Mean Corpuscular Hemoglobin 34.7 H Mean Corpuscular Hemoglobin Concent 35.3 Mean Corpuscular Volume 98.5 Mean Platelet Volume 9.7 Monocytes # 0.7 Monocytes % 9.0 Neutrophils # 6.7 Neutrophils % 84.2 H Nucleated Red Blood Cells # 0.0 Nucleated Red Blood Cells % 0.2 H Platelet Count 197 Potassium Level 3.4 L Red Blood Count 3.34 L Red Cell Distribution Width 13.2 Sodium Level 132 L White Blood Count 8.0 # Medications Current Medications Verapamil HCl (Isoptin Sr) 240 mg DAILY PO Last administered on 05/10/16 08:33 ; Admin Dose 240 MG; Start 05/08/16 at 09:00 Senna (Senokot) 2 tab DAILY PO Last administered on 05/09/16 08:20; Admin Dose 2 TAB; Start 05/08/16 at 09:00 Ondansetron HCl (Zofran Inj) 4 mg Q6H PRN IV NAUSEA AND/OR VOMITING; Start 05/08 at 00:00 Hydralazine HCl (Apresoline) 10 mg Q4H PRN IV ELEVATED SYSTOLIC BP Last administered on 05/08/16 01:18; Admin Dose 10 MG; Start 05/08/16 at 00:00 Acetaminophen (Tylenol Tab) 650 mg Q6H PRN PO PAIN AND OR ELEVATED TEMP; Start 05/08/16 at 00:00 Morphine Sulfate (morphine) 4 mg Q4H PRN IV SEVERE PAIN LEVEL 7-10 Last administered on 05/10/16 15:06; Admin Dose 4 MG; Start 05/08/16 at 00:00 Gabapentin (Neurontin) 300 mg TID PRN PO PAIN Last administered on 05/08/16 20: 29; Admin Dose 300 MG; Start 05/08/16 at 00:00 Magnesium Hydroxide (Milk Of Mag) 30 ml DAILY PRN PO CONSTIPATION; Start at 00:00 Cyanocobalamin (Vitamin B12) 1,000 mcg DAILY PO Last administered on 05/10/16 08:33; Admin Dose 1,000 MCG; Start 05/09/16 at 09:00 Folic Acid (Folic Acid) 0.8 mg DAILY PO Last administered on 05/10/16 08:33; Admin Dose 0.8 MG; Start 05/09/16 at 09:00 Acetaminophen (Tylenol Tab) 1,000 mg Q24H PO Last administered on 05/10/16 00: 21; Admin Dose 1,000 MG; Start 05/08/16 at 23:00; Stop 05/11/16 at 23:01 Diphenhydramine HCl 50 mg 50 mg Q24H PO Last administered on 05/10/16 00:21; Admin Dose 50 MG; Start 05/08/16 at 23:00; Stop 05/11/16 at 23:01 Immune Globulin/ Sterile Water (Carimune Nf/ Water Sterile For Inj) 733 ml @ 42 mls/hr Q24H IV Last administered on 05/10/16 00:22; Admin Dose 42 MLS/HR; Start 05/08/16 at 23:00; Stop 05/12/16 at 16:28 Assessment/Plan Chief Complaint/Hosp Course PHYSICAL EXAMINATION: GENERAL: Not in acute distress, lying in bed. HEENT: Normocephalic, atraumatic head. NECK: No carotid bruits. No thyromegaly. LUNGS: Clear to auscultation bilaterally. CARDIAC: Normal cardiac rhythm and sounds. ABDOMEN: Soft. EXTREMITIES: No cyanosis, clubbing or edema. NEUROLOGIC: He is awake, alert, and oriented x3 with fluent speech. Cranial nerve examination shows intact visual beltran bilaterally. Pupils round, reactive to light from 4 to 2 mm bilaterally. Extraocular movements intact without nystagmus. Symmetrical face. Preserved facial strength and sensation. Tongue is in midline. Palate elevates symmetrically. Motor strength examination shows mild weakness in the bilateral hands about 4/5. In lower extremities he is weaker about 3/5 especially with dorsi and plantar flexion of the feet and extension of the knee and abduction of the thighs. Normal bulk and tone. I did not see any fasciculations. Sensory examination shows diminution of vibration in bilateral fingertips and is actually almost absent vibratory sense even on the knees, not felt on the toes. Sensory examination also diminished in glove stocking distribution. Deep tendon reflexes 1+ upper extremities and absent in lower extremities. No definite response to plantar stimulation. Coordination preserved on [id number] testing. No dysmetria or tremor. 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 Started on IVIG, continue 4-day course. Continue PT. MRI L-S spine shows severe central stenosis, but unlikely to cause pt's problems, as he also has weakness and numbness in the upper extremities. Protein in CSF WNL, usually is elevated in GBS, but not always Problems: MILTON MCPHERSON MD May 10, 2016 17:32
[2016-05-10 20:06] VITALS: BP 128/73; RESP 16
[2016-05-11] MEDS: morphine 4 MG/ML VIAL IV PRN ×2 (05:27→21:31)
[2016-05-11] MEDS: GUAIFENESIN/DM 5ML CUP PO PRN ×2 (06:03→21:30)
[2016-05-11] MEDS: CEPASTAT LOZENGE MT PRN ×3 (06:03→21:30)
--- NOTE | 2016-05-11 07:41 | RADRPT ---
PROCEDURE: MRI OF THE LEFT AND RIGHT LEG CLINICAL INDICATION: Inability to ambulate TECHNIQUE: Multiple MR pulse sequences in multiple planes were obtained before and after 10 ml of IV Magnevist. Images were interpreted on a high-resolution PACS system. COMPARISON: CT from 05/08/2016 FINDINGS: There is a mild to moderate bone marrow edema at the lateral tibial plateau on the left knee related to stress reaction or possibly an early insufficiency type fracture. No evidence for osteomyelitis at this time. Normal bone marrow signal seen throughout the right tibia / fibula without evidence o f osteomyelitis, fracture or osteonecrosis The limited evaluation of the knees demonstrates arthrosis at the medial and lateral right femorotib ial compartments. There is also a least mild arthrosis of the medial and lateral femorotibial be rtments of the left knee. There is mild bilateral muscle fatty atrophy of the anterior posterior muscle compartments. No abno rmal edema is seen. Suggest acute denervation effect, myositis or strain. No abnormal intramuscula r fluid collections are seen. No abnormal foci of enhancement are identified. The neurovascular bundles are grossly preserved. IMPRESSION: 1. Mild, chronic fatty atrophy noted at the anterior and posterior compartments of both lower legs. 2. Mild to moderate bone marrow edema at the left lateral tibial plateau, likely a stress response v ersus an early insufficiency type fracture. 3. No acute osseous abnormality in the right tibia / fibula. RPTAT: PP .Ganesh Jenkins MD, MD Date Time Electronically viewed and signed by .Ganesh Jenkins MD, MD on 05/11/2016 07:40 .d/
[2016-05-11 07:58] VITALS: BP 162/82; RESP 20
[2016-05-11] MEDS: FOLIC ACID 0.4 MG TAB PO SCH (08:19)
[2016-05-11] MEDS: CYANOCOBALAMIN 500 MCG TAB PO SCH (08:20)
[2016-05-11] MEDS: VERAPAMIL (SR) 240 MG TAB PO SCH (08:23)
[2016-05-11 08:24] VITALS: BP 162/84; PULSE 89
[2016-05-11] MEDS: SENNA TAB PO SCH (08:24)
[2016-05-11] MEDS ORDERED: POTASSIUM CHLORIDE (SR) 20 MEQ TAB PO STA (11:21)
--- NOTE | 2016-05-11 11:26 | PN ---
Date/Time of Note Date/Time of Note DATE: 05/11/16 TIME: 11:24 Assessment/Plan VTE Prophylaxis VTE Prophylaxis Intervention: other Lines/Catheters IV C[facility]ter Type (from [facility]): Saline Lock Urinary Cath still in place: No Assessment/Plan Chief Complaint/Hosp Course IMPRESSION: 1. 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 Evidence of muscle wasting bilateral lower extremity and CT of the lower extremities Neurology has been consulted, continue IVIG 4 days (starting on 05/09/2016) Follow-up MRI of the lumbar sacral and lower extremity Continue folic acid for vitamin B12 2. Hypertension. Well-controlled on medical management 3. History of arthritis. 4. Mild hyponatremia. Resolved 5. Hyperkalemia Resolved We will continue monitor patient closely for recommendation management treatment as clinical course Problems: Subjective 24 Hr Interval Summary Free Text/Dictation Patient denies any chest pain or shortness of breath Improvement in his lower extremity weakness No nausea vomiting diarrhea Tolerating oral intake Exam/Review of Systems Vital Signs Vitals Vital Signs Date Time Temp Pulse Resp B/P Pulse Ox O2 Delivery O2 Flow Rate FiO2 05/11/16 08:24 89 162/84 05/11/16 07:58 97.8 20 93 05/08/16 21:35 Room Air Intake and Output 05/10/16 05/10/16 05/11/16 15:00 23:00 07:00 Intake Total 145 ml 840 ml 1133 ml Output Total 100 ml 1125 ml 1400 ml Balance 45 ml -285 ml -267 ml Exam General: The patient is well-developed, Not in acute distress. HEENT: Atraumatic, normocephalic. The pupils are equal and round . Neck: Supple with full range of motion. Chest: Normal expansion of the thorax during inspiration Lungs: Clear to auscultation bilaterally Heart: Normal S1-S2, Regular rhythm and rate. Abdomen: Soft , nontender, nondistended , bowel sounds are present. Extremities: Normal to inspection, no edema no cyanosis Neurologic: Normal mental status,The patient is awake, alert and oriented . Results Result Diagram: 05/10/16 0515 05/10/16 0515 Medications Medications Current Medications Verapamil HCl (Isoptin Sr) 240 mg DAILY PO Last administered on 05/11/16t 08:23 ; Admin Dose 240 MG; Start 05/08/16 at 09:00 Senna (Senokot) 2 tab DAILY PO Last administered on 05/09/16 08:20; Admin Dose 2 TAB; Start 05/08/16 at 09:00 Ondansetron HCl (Zofran Inj) 4 mg Q6H PRN IV NAUSEA AND/OR VOMITING; Start 05/08 at 00:00 Hydralazine HCl (Apresoline) 10 mg Q4H PRN IV ELEVATED SYSTOLIC BP Last administered on 05/08/16 01:18; Admin Dose 10 MG; Start 05/08/16 at 00:00 Acetaminophen (Tylenol Tab) 650 mg Q6H PRN PO PAIN AND OR ELEVATED TEMP; Start 05/08/16 at 00:00 Morphine Sulfate (morphine) 4 mg Q4H PRN IV SEVERE PAIN LEVEL 7-10 Last administered on 05/11/16 05:27; Admin Dose 4 MG; Start 05/08/16 at 00:00 Gabapentin (Neurontin) 300 mg TID PRN PO PAIN Last administered on 05/08/16 20: 29; Admin Dose 300 MG; Start 05/08/16 at 00:00 Magnesium Hydroxide (Milk Of Mag) 30 ml DAILY PRN PO CONSTIPATION; Start at 00:00 Cyanocobalamin (Vitamin B12) 1,000 mcg DAILY PO Last administered on 05/11/16 08:20; Admin Dose 1,000 MCG; Start 05/09/16 at 09:00 Folic Acid (Folic Acid) 0.8 mg DAILY PO Last administered on 05/11/16 08:19; Admin Dose 0.8 MG; Start 05/09/16 at 09:00 Acetaminophen (Tylenol Tab) 1,000 mg Q24H PO Last administered on 05/10/16 22: 35; Admin Dose 1,000 MG; Start 05/08/16 at 23:00; Stop 05/11/16 at 23:01 Diphenhydramine HCl 50 mg 50 mg Q24H PO Last administered on 05/10/16 22:35; Admin Dose 50 MG; Start 05/08/16 at 23:00; Stop 05/11/16 at 23:01 Immune Globulin/ Sterile Water (Carimune Nf/ Water Sterile For Inj) 733 ml @ 42 mls/hr Q24H IV Last administered on 05/10/16 23:07; Admin Dose 42 MLS/HR; Start 05/08/16 at 23:00; Stop 05/12/16 at 16:28 Guaifenesin/ Dextromethorphan (Robitussin Dm Liquid Cup) 10 ml Q6 PRN PO COUGH Last administered on 05/11/16 06:03; Admin Dose 10 ML; Start 05/11/16 at 05:30 Phenol (Cepastat Lozenge) 1 lozenge Q2 PRN MT COUGH Last administered on 06:03; Admin Dose 1 LOZENGE; Start 05/11/16 at 05:30 NIKUNJ MANZANO MD May 11, 2016 11:26
[2016-05-11 19:26] VITALS: BP 153/72; RESP 16
[2016-05-11] MEDS: DIPHENHYDRAMINE 50 MG CAP PO SCH (22:28)
[2016-05-11] MEDS: ACETAMINOPHEN 500 MG TAB PO SCH (22:28)
[2016-05-11] MEDS: WATER STERILE FOR IV SCH (23:09)
[2016-05-11] MEDS: IMMUNE GLOBULIN IV SCH (23:09)
[2016-05-12 05:52] LABS: POTASSIUM 3.7 mmol/L (3.5-5.1)
[2016-05-12 05:55] LABS: CALCIUM 8.2 mg/dl (8.4-10.2); CREATININE 0.51 mg/dl (0.61-1.24)
[2016-05-12 05:56] LABS: MAGNESIUM 1.9 mg/dl (1.7-2.5)
[2016-05-12 06:04] LABS: BASOPHILS % 0.6 % (0.0-2.0); EOSINOPHILS # 0.1 10^3/ul (0.0-0.5); EOSINOPHILS % 1.8 % (0.0-7.0); HEMATOCRIT 33.9 % (42.0-52.0); HEMOGLOBIN 11.7 g/dl (14.0-18.0); LYMPHOCYTES # 0.5 10^3/ul (0.8-2.9); LYMPHOCYTES % 15.8 % (15.0-51.0); MEAN CORPUSCULAR HEMOGLOBIN 34.9 pg (29.0-33.0); MEAN CORPUSCULAR HGB CONC 34.4 g/dl (32.0-37.0); MEAN CORPUSCULAR VOLUME 101.5 fl (82.0-101.0); MEAN PLATELET VOLUME 7.3 fl (7.4-10.4); MONOCYTE # 0.3 10^3/ul (0.3-0.9); MONOCYTES % 10.1 % (0.0-11.0); NEUTROPHIL # 2.5 10^3/ul (1.6-7.5); NEUTROPHILS % 71.7 % (39.0-77.0); PLATELET COUNT 173 10^3/UL (140-440); RED BLOOD COUNT 3.34 10^6/ul (4.70-6.10); RED CELL DISTRIBUTION WIDTH 15.1 % (11.5-14.5); UNCORRECTED WBC 3.5 10^3/ul (4.8-10.8); WHITE BLOOD COUNT 3.5 10^3/ul (4.8-10.8)
[2016-05-12 06:18] LABS: CONDITION 1; LH ANALYZER COMMENTS 1
[2016-05-12] MEDS: GUAIFENESIN/DM 5ML CUP PO PRN ×2 (07:20→13:06)
[2016-05-12] MEDS: CEPASTAT LOZENGE MT PRN ×2 (07:20→13:07)
[2016-05-12] MEDS: morphine 4 MG/ML VIAL IV PRN ×2 (07:21→13:31)
[2016-05-12 07:28] VITALS: BP 180/94; RESP 20
[2016-05-12] MEDS: CYANOCOBALAMIN 500 MCG TAB PO SCH (08:27)
[2016-05-12] MEDS: FOLIC ACID 0.4 MG TAB PO SCH (08:27)
[2016-05-12] MEDS: SENNA TAB PO SCH (08:28)
[2016-05-12] MEDS: VERAPAMIL (SR) 240 MG TAB PO SCH (08:35)
[2016-05-12 08:37] VITALS: BP 150/71; PULSE 98
--- NOTE | 2016-05-12 18:51 | CONS ---
Date/Time of Note Date/Time of Note DATE: 05/12/16 TIME: 18:47 Consult Date/Type/Reason Admit Date/Time May 07, 2016 at 22:19 Type of Consultation: neurology Subjective Feels slightly stronger, able to ambulate few steps today. S/p IVIG Objective Vital Signs Date Time Temp Pulse Resp B/P Pulse Ox O2 Delivery O2 Flow Rate FiO2 05/12/16 08:37 98 150/71 05/12/16 07:28 97.7 20 97 05/08/16 21:35 Room Air Intake and Output 05/11/16 05/11/16 05/12/16 15:00 23:00 07:00 Intake Total 840 ml 1533 ml Output Total 701 ml 2100 ml Balance 139 ml -567 ml Results/Medications Result Diagram: 05/12/16 0445 05/12/16 0445 Results 24 hrs Laboratory Tests Test 05/12/16 04:45 Anion Gap 11 Basophils # 0.0 Basophils % 0.6 Blood Morphology Comment Blood Urea Nitrogen 10 Calcium Level 8.2 L Carbon Dioxide Level 25 Chloride Level 102 Creatinine 0.51 L Eosinophils # 0.1 Eosinophils % 1.8 Glucose Level 89 Hematocrit 33.9 L Hemoglobin 11.7 L Lymphocytes # 0.5 L Lymphocytes % 15.8 Magnesium Level 1.9 Mean Corpuscular Hemoglobin 34.9 H Mean Corpuscular Hemoglobin Concent 34.4 Mean Corpuscular Volume 101.5 H Mean Platelet Volume 7.3 #L Monocytes # 0.3 Monocytes % 10.1 Neutrophils # 2.5 Neutrophils % 71.7 Nucleated Red Blood Cells # 0.0 Nucleated Red Blood Cells % 0.0 Platelet Count 173 Potassium Level 3.7 Red Blood Count 3.34 L Red Cell Distribution Width 15.1 H Sodium Level 134 L White Blood Count 3.5 #L Medications Current Medications Verapamil HCl (Isoptin Sr) 240 mg DAILY PO Last administered on 05/12/16 08:35 ; Admin Dose 240 MG; Start 05/08/16 at 09:00 Senna (Senokot) 2 tab DAILY PO Last administered on 05/12/16 08:28; Admin Dose 2 TAB; Start 05/08/16 at 09:00 Ondansetron HCl (Zofran Inj) 4 mg Q6H PRN IV NAUSEA AND/OR VOMITING; Start 05/08 at 00:00 Hydralazine HCl (Apresoline) 10 mg Q4H PRN IV ELEVATED SYSTOLIC BP Last administered on 05/08/16 01:18; Admin Dose 10 MG; Start 05/08/16 at 00:00 Acetaminophen (Tylenol Tab) 650 mg Q6H PRN PO PAIN AND OR ELEVATED TEMP; Start 05/08/16 at 00:00 Morphine Sulfate (morphine) 4 mg Q4H PRN IV SEVERE PAIN LEVEL 7-10 Last administered on 05/12/16 13:31; Admin Dose 4 MG; Start 05/08/16 at 00:00 Gabapentin (Neurontin) 300 mg TID PRN PO PAIN Last administered on 05/08/16 20: 29; Admin Dose 300 MG; Start 05/08/16 at 00:00 Magnesium Hydroxide (Milk Of Mag) 30 ml DAILY PRN PO CONSTIPATION; Start at 00:00 Cyanocobalamin (Vitamin B12) 1,000 mcg DAILY PO Last administered on 05/12/16 08:27; Admin Dose 1,000 MCG; Start 05/09/16 at 09:00 Folic Acid (Folic Acid) 0.8 mg DAILY PO Last administered on 05/12/16 08:27; Admin Dose 0.8 MG; Start 05/09/16 at 09:00 Guaifenesin/ Dextromethorphan (Robitussin Dm Liquid Cup) 10 ml Q6 PRN PO COUGH Last administered on 05/12/16 13:06; Admin Dose 10 ML; Start 05/11/16 at 05:30 Phenol (Cepastat Lozenge) 1 lozenge Q2 PRN MT COUGH Last administered on 13:07; Admin Dose 1 LOZENGE; Start 05/11/16 at 05:30 Assessment/Plan Chief Complaint/Hosp Course PHYSICAL EXAMINATION: GENERAL: Not in acute distress, lying in bed. HEENT: Normocephalic, atraumatic head. NECK: No carotid bruits. No thyromegaly. LUNGS: Clear to auscultation bilaterally. CARDIAC: Normal cardiac rhythm and sounds. ABDOMEN: Soft. EXTREMITIES: No cyanosis, clubbing or edema. NEUROLOGIC: He is awake, alert, and oriented x3 with fluent speech. Cranial nerve examination shows intact visual beltran bilaterally. Pupils round, reactive to light from 4 to 2 mm bilaterally. Extraocular movements intact without nystagmus. Symmetrical face. Preserved facial strength and sensation. Tongue is in midline. Palate elevates symmetrically. Motor strength examination shows mild weakness in the bilateral hands about 4/5. In lower extremities he is 3+/5, especially slightly weaker with dorsi and plantar flexion of the feet and extension of the left knee . Normal bulk and tone. I did not see any fasciculations. Sensory examination shows diminution of vibration in bilateral fingertips and is actually almost absent vibratory sense even on the knees, not felt on the toes. Sensory examination also diminished in glove stocking distribution. Deep tendon reflexes 1+ upper extremities and absent in lower extremities. No definite response to plantar stimulation. Coordination preserved on [id number] testing. No dysmetria or tremor. 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 S/p IVIG, 4-day course. Continue PT. MRI L-S spine shows severe central stenosis, but unlikely to cause pt's problems , as he also has weakness and numbness in the upper extremities. Protein in CSF WNL, usually is elevated in GBS, but not always. OK to d/c to rehab/SNF. Out pt f/u in my office for NCS/EMG 2 weeks Problems: MILTON MCPHERSON MD May 12, 2016 18:51
[2016-05-12 19:27] VITALS: BP 140/74; RESP 18
[2016-05-12] MEDS: ACETAMINOPHEN 325 MG TAB PO PRN (19:38)
[2016-05-13] MEDS: morphine 4 MG/ML VIAL IV PRN ×4 (01:13→16:46)
[2016-05-13] MEDS: CEPASTAT LOZENGE MT PRN ×4 (02:24→21:10)
[2016-05-13] MEDS: GUAIFENESIN/DM 5ML CUP PO PRN ×3 (02:24→17:56)
[2016-05-13 06:13] LABS: POTASSIUM 3.6 mmol/L (3.5-5.1)
[2016-05-13 06:15] LABS: CREATININE 0.51 mg/dl (0.61-1.24)
[2016-05-13 06:16] LABS: CALCIUM 8.4 mg/dl (8.4-10.2)
[2016-05-13 06:29] LABS: BASOPHILS % 0.3 % (0.0-2.0); EOSINOPHILS # 0.1 10^3/ul (0.0-0.5); HEMATOCRIT 36.4 % (42.0-52.0); HEMOGLOBIN 12.5 g/dl (14.0-18.0); LYMPHOCYTES # 0.6 10^3/ul (0.8-2.9); LYMPHOCYTES % 11.6 % (15.0-51.0); MEAN CORPUSCULAR HGB CONC 34.4 g/dl (32.0-37.0); MEAN CORPUSCULAR VOLUME 101.8 fl (82.0-101.0); MEAN PLATELET VOLUME 7.4 fl (7.4-10.4); MONOCYTE # 0.4 10^3/ul (0.3-0.9); NEUTROPHIL # 4.3 10^3/ul (1.6-7.5); NEUTROPHILS % 78.1 % (39.0-77.0); PLATELET COUNT 192 10^3/UL (140-440); RED BLOOD COUNT 3.57 10^6/ul (4.70-6.10); RED CELL DISTRIBUTION WIDTH 14.9 % (11.5-14.5); UNCORRECTED WBC 5.5 10^3/ul (4.8-10.8); WHITE BLOOD COUNT 5.5 10^3/ul (4.8-10.8)
[2016-05-13 06:36] LABS: CONDITION 1; LH ANALYZER COMMENTS 1
[2016-05-13 07:35] VITALS: BP 164/81; RESP 20
[2016-05-13] MEDS: CYANOCOBALAMIN 500 MCG TAB PO SCH (09:09)
[2016-05-13] MEDS: SENNA TAB PO SCH (09:10)
[2016-05-13] MEDS: FOLIC ACID 0.4 MG TAB PO SCH (09:13)
[2016-05-13] MEDS: VERAPAMIL (SR) 240 MG TAB PO SCH (09:14)
[2016-05-13] MEDS ORDERED: FOLI0.4T2 PO (11:24)
[2016-05-13] MEDS ORDERED: CYAN500T46 PO (11:24)
[2016-05-13] MEDS ORDERED: METO-448 PO (11:24)
[2016-05-13 12:22] VITALS: BP 135/75; PULSE 96
[2016-05-13] MEDS: METOPROLOL 25 MG TAB PO SCH ×2 (12:22→21:26)
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
[2016-05-13] MEDS: GABAPENTIN 300 MG CAP PO PRN (17:56)
[2016-05-13 18:04] VITALS: BP 119/66; PULSE 65; RESP 18
[2016-05-13 20:51] VITALS: BP 111/66; RESP 18
[2016-05-13] MEDS: ACETAMINOPHEN 325 MG TAB PO PRN (21:10)
[2016-05-13 22:35] VITALS: BP 155/74; PULSE 65; RESP 19
== END 2016-05-13 22:38 | DRG 95 ==
LOC: E/R 15:01 → MS2 22:19
PROVIDERS: ADMIT Internal Medicine; ATTEND Internal Medicine
PROC: 3E033GC Introduction of Other Therapeutic Substance into Peripheral Vein, Percutaneous Approach (ICD-10-PCS; principal; 2016-05-08)
PROC: 009U3ZX Drainage of Spinal Canal, Percutaneous Approach, Diagnostic (ICD-10-PCS; 2016-05-09)
PROC: B01B1ZZ Fluoroscopy of Spinal Cord using Low Osmolar Contrast (ICD-10-PCS; 2016-05-09)
DX: G61.0 Guillain-Barre syndrome (principal); G61.81 Chronic inflammatory demyelinating polyneuritis; E87.1 Hypo-osmolality and hyponatremia; I10 Essential (primary) hypertension; E87.5 Hyperkalemia; M62.562 Muscle wasting and atrophy, not elsewhere classified, left lower leg; M62.561 Muscle wasting and atrophy, not elsewhere classified, right lower leg
CPT/HCPCS: 36415; 70450; 71010; 72100; 72125; 72158; 73700; 73720; 76775; 80048; 80053; 81001; 81003; 82607; 82746; 82945; 83690; 83735; 84100; 84157; 84443; 84484; 85025; 85610; 87040; 87086; 89050; 93005; 94150; 97110; 97162; 97530; J0360; J1100; J1566; J2270; J3420; J7030